=== PATIENT | female | born 1985 | race African-American/Black ===

== ENCOUNTER 2018-07-09 09:51 | Emergency (ER) | payer MEDICAID ==
[~2018-07-09] VITALS: Ht 175.3 cm; Wt 66.0 kg
[2018-07-09 10:52] VITALS: BP 122/76
== END 2018-07-09 10:56 | disposition home or self-care (01) ==
LOC: ER 10:07
DX: J06.9 Acute upper respiratory infection, unspecified (principal)
CPT/HCPCS: 99281; Z7610